=== PATIENT | male | born 1965 ===

== ENCOUNTER 2017-03-25 21:08 | Emergency (ER) | payer OTHER ==
[~2017-03-25] VITALS: Ht 175.3 cm; Wt 75.0 kg
--- NOTE | 2017-03-25 21:09 | ED.REPORT ---
HPI-General Illness Date of Service Mar 25, 2017 ED Provider: Dr. Burnett Patient presents with multiple vague symptoms stating that he has not eaten in several days, reports drinking beer earlier in the day, reports that his car did not start and that he is homeless and decided to come to the emergency room. Nursing Notes Stated Complaint: COUGH/SOB Nursing Notes Reviewed: Yes Allergies: Coded Allergies: latex (Verified Allergy, Unknown, 03/25/17) naproxen (Verified Allergy, Unknown, 03/25/17) General Time Seen by MD: 21:09 Chief Complaint Other Physical Exam Vital Signs Vital Signs Date Time Temp Pulse Resp B/P Pulse Ox O2 Delivery O2 Flow Rate FiO2 03/25/17 21:27 36.8 95 14 155/105 96 Room Air Interpretation & Diagnostics Lab Results Interpretation Result Diagram: 03/25/17211903/25/172119 Test 03/25/17 21:20 03/25/17 21:35 White Blood Count 4.9th/mm3 (3.8-10.1) Red Blood Count 4.11mil/mm3 (4.40-5.80) Hemoglobin 13.9g/dL (13.8-17.2) Hematocrit 40.2% (41.0-50.0) Mean Corpuscular Volume 97.8fL (81-100) Mean Corpuscular Hemoglobin 33.8pg (27.0-35.0) Mean Corpuscular Hemoglobin Concent 34.6% (32.0-37.0) Red Cell Distribution Width 14.4% (12.3-15.4) Platelet Count 86bil/L (150-400) Neutrophils (%) (Auto) 41.6% (40-74) Lymphocytes (%) (Auto) 41.2% (14-46) Monocytes (%) (Auto) 13.9% (4-12) Eosinophils (%) (Auto) 2.7% (0-5) Basophils (%) (Auto) 0.4% (0-3) Sodium Level 137mEq/L (134-144) Potassium Level 4.3mEq/L (3.5-5.2) Chloride Level 97mEq/L (97-108) Carbon Dioxide Level 21mmol/L (18-29) Blood Urea Nitrogen 7mg/dL (6-24) Creatinine 0.63mg/dL (0.76-1.27) Estimat Glomerular Filtration Rate 143mL/min (>59) Glucose Level 99mg/dL (60-99) Calcium Level 9.4mg/dL (8.5-10.1) Magnesium Level 2.0mg/dL (1.6-2.6) Total Bilirubin 0.5mg/dL (0.0-1.2) Aspartate Amino Transf (AST/SGOT) 397U/L (0-50) Alanine Aminotransferase (ALT/SGPT) 252U/L (0-44) Alkaline Phosphatase 98U/L (25-150) Troponin T 0.010ug/L (0.0-0.011) Pro-B-Type Natriuretic Peptide 13.18pg/mL (0-121) Total Protein 8.1g/dL (6.4-8.4) Albumin 4.2g/dL (3.4-5.0) Urine Color Yellow (YELLOW) Urine Appearance Cloudy (CLEAR,HAZY) Urine pH 7.0 (5.0-8.0) Urine Specific [place] 1.015 (1.003-1.035) Urine Protein 100mg/dL (NEG,TRACE) Urine Glucose (UA) Negativemg/dL (NEGATIVE) Urine Ketones Negativemg/dL (NEGATIVE) Urine Occult Blood Large (NEGATIVE) Urine Nitrite Negative (NEGATIVE) Urine Bilirubin Negative (NEGATIVE) Urine Urobilinogen Normalmg/dL (NORMAL) Urine Leukocyte Esterase Moderate (NEGATIVE) Urine RBC 3-10/hpf (0-2) Urine WBC >50/hpf (0-5) Urine Epithelial Cells Many/hpf (NONE-MOD) Urine Crystals None seen (NONE SEEN) Urine Bacteria Many/hpf (NONE-FEW) Urine Hyaline Casts None/lpf (NONE) Urine Granular Casts None seen (NONE SEEN) Urine Waxy Casts None seen (NONE SEEN) Urine Red Blood Cell Casts None seen (NONE SEEN) Urine White Blood Cell Casts None seen (NONE SEEN) Urine Mucus None seen (None Seen) Urine Trichomonas None seen (NONE SEEN) Urine Yeast None (NONE SEEN) Urinalysis Comment None Urine Culture Reflexed Indicated Re-Eval/Medical Decision Med Decision/Clinical Course I am called to the bedside as the patient was found in his room to be consuming cans of beer. When I enter the room the patient is standing up acting aggressively towards nursing staff and is torn out his IV. He states that he is angry that we are not allowing him to drink beer in his hospital room and that he intends to leave. I have not yet evaluated the patient or conduct the physical examination however he is speaking fluently in full sentences. He is ambulating in a straight line. He quickly reviewed his laboratory studies which revealed a blood alcohol level of 0.14, unremarkable CBC, CMP with elevated transaminases and a negative troponin. Urinalysis was concerning for possible urinary tract infection. His chest x-ray did not demonstrate any focal pneumonia. Given the patient's aggressive behavior towards nursing staff and refusal to stay in the emergency department I had to quickly make an assessment of whether this patient had decisional capacity. In this chronic alcoholic he has blood alcohol level is relatively low and he clearly demonstrates no clinical evidence of intoxication. He is being quite aggressive in stating that he intends to leave the emergency room immediately. I do not feel that physically restraining this patient would be safe for the patient or hospital staff. In my assessment at this time he demonstrates decisional capacity. I attempted to convince the patient to stay in the emergency department so that we can treat his urinary tract infection and further assess and however he refused. The patient eloped from the emergency department AGAINST MEDICAL ADVICE. He was advised to return right away should he change his mind and wish to seek care. Counseled Regarding: Diagnosis, Lab results, Need for follow-up, When/why to return to ED Discharge & Departure Primary Impression: Aggressive behavior Additional Impressions: Alcoholism Urinary tract infection Urinary tract infection type: site unspecified Hematuria presence: with hematuria Qualified Code: N39.0 - Urinary tract infection, site not specified Homelessness Disposition: Home Discharge Condition All VS Reviewed: Yes Condition: Stable Scribe Attestation Portions of this note were transcribed by Matias Woodall. I, Dr. Burnett, personally performed the history, physical exam and medical decision-making; I reviewed and confirmed the accuracy of the information in the transcribed note. Signed by Rachael Berrios, 03/25/17 - 2149 Vamshi Burnett MD Mar 25, 2017 21:09 MATIAS WOODALL Mar 25, 2017 21:47
[2017-03-25 21:27] VITALS: BP 155/105; PULSE 95; RESP 14; O2SAT 96
[2017-03-25 21:27] LABS: BASOPHILS % (AUTO) 0.4 % (0-3); EOSINOPHILS % (AUTO) 2.7 % (0-5); MONOCYTES % (AUTO) 13.9 % (4-12); Mean Corpuscular Hemoglobin 33.8 pg (27.0-35.0); Mean Corpuscular Volume 97.8 fL (81-100); NEUTROPHILS % (AUTO) 41.6 % (40-74); Platelet Count 86 bil/L (150-400)
[2017-03-25 22:01] LABS: TROPONIN T 0.01 ug/L (0.0-0.011)
--- NOTE | 2017-03-25 22:08 | DRSVH ---
PROCEDURE: X-RAY CHEST, TWO VIEWS ([id number]) INDICATIONS: SOB TECHNIQUE: 2 views of the chest were acquired. COMPARISON: None. FINDINGS: Surgical changes and devices: monitor worker leads are seen over the chest. Lungs and pleura: No pleural effusions or pneumothorax. Lungs are clear. Small density in the left mid to lower lung field in the fourth anterior intercostal space is thought to be a nipple shadow. Mediastinum: Mediastinal contours are normal. Heart size is normal. Bones and chest wall: No suspicious bony abnormalities. Soft tissues appear unremarkable. IMPRESSION: No acute or active disease is seen in the two-view chest. Dictated by: Frandy Marvin M.D. on 03/25/2017 at 22:05 Approved by: Frandy Marvin M.D. on 03/25/2017 at 22:06
[2017-03-25 22:22] LABS: APPEARANCE,URINE CLOUDY (CLEAR,HAZY); COLOR,URINE YELLOW (YELLOW); OCCULT BLOOD,URINE LARGE (NEGATIVE); UROBILINOGEN,URINE NORMAL (NORMAL)
[2017-03-26] MEDS ORDERED: ALBU8.5H2 INHALATION (23:05)
== END 2017-03-25 21:56 | disposition left against medical advice (07) ==
LOC: SED 21:08
DX: F91.9 Conduct disorder, unspecified (principal); F10.20 Alcohol dependence, uncomplicated; N39.0 Urinary tract infection, site not specified; Z59.0 Homelessness

== ENCOUNTER 2017-03-26 10:25 | Emergency (ER) | payer OTHER ==
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
[2017-03-26 10:26] VITALS: BP 155/96; PULSE 89; RESP 20; O2SAT 98
[2017-03-26] MEDS ORDERED: OLANZapine Zydis ODT 5 mg Tablet PO ONE (11:00)
[2017-03-26] MEDS ORDERED: Haloperidol 5 mg/mL Inj IM ONE (11:00)
--- NOTE | 2017-03-26 13:28 | DRSVH ---
PROCEDURE: CT CERVICAL SPINE WITHOUT CONTRAST ([id number]) INDICATIONS: fall, intoxicated TECHNIQUE: Noncontrast 3 mm thick sections acquired from the skull base to the T4 level. Sagittal and coronal r eformats were then constructed. For radiation dose reduction, the following was used: automated exp osure control, adjustment of mA and/or kV according to patient size. COMPARISON: None. FINDINGS: Image quality: Excellent. Bones: No fractures or dislocations. Multiple ununited anterior osteophytes of the mid cervical spi ne however corticated margin, in keeping with chronic age. Visualized superior ribs are intact. Ther e is multilevel mild cervical disc degeneration. Subcentimeter sclerotic focus in the C3 vertebral abel dy presumably bone island although technically nonspecific. Soft tissues: Prevertebral soft tissues are normal in thickness. No paravertebral hematomas. No ap ical pneumothoraces. IMPRESSION: No acute fracture or malalignment. Degenerative changes as above. Dictated by: Suraj Tam M.D. on 03/26/2017 at 13:23 Approved by: Suraj Tam M.D. on 03/26/2017 at 13:26
--- NOTE | 2017-03-26 13:34 | DRSVH ---
PROCEDURE: CT BRAIN WITHOUT CONTRAST ([id number]) INDICATIONS: fall, intoxicated TECHNIQUE: Noncontrast 4.5 mm thick angled axial sections acquired from the foramen magnum to the vertex, with c oronal reformats. COMPARISON: None. FINDINGS: Image quality: Excellent. CSF spaces: Basal cisterns are patent. No extra-axial fluid collections. The ventricles are symmet delmis in size and shape. Brain: No intracranial bleeds or masses. There is cerebral volume loss for age, with resultant vent ricular and sulcal prominence. There are periventricular and deep white matter chronic small vessel ischemic changes. There is intracranial internal carotid artery atherosclerosis. Skull and face: No calvarial fracture. Linear lucency seen in the anterior wall of the right maxillar y antrum could be vessel foramen however cannot exclude fracture and clinical correlation. Sinuses: Hypoplastic right maxillary sinus with near-complete opacification IMPRESSION: No acute intracranial process. Linear lucent focus seen in anterior wall of the right maxillary sinus. This is most likely vessel fo ramen, especially with symmetric appearance seen on the contralateral side on the coronal reformation s, and sclerotic margin. If there is high clinical suspicion for fracture, a maxillofacial CT could b e performed for further assessment. Dictated by: Suraj Tam M.D. on 03/26/2017 at 13:26 Approved by: Suraj Tam M.D. on 03/26/2017 at 13:32
[2017-03-26 16:19] VITALS: BP 107/60; PULSE 97; O2SAT 93
[2017-03-26] MEDS ORDERED: ALBU8.5H2 INHALATION (23:05)
[2017-03-26 23:08] VITALS: BP 101/57; PULSE 101; RESP 16; O2SAT 95
[2017-03-26 23:15] VITALS: BP 111/55; PULSE 93; RESP 16; O2SAT 95
== END 2017-03-26 23:16 | disposition home or self-care (01) ==
LOC: SED 10:25
DX: F91.8 Other conduct disorders (principal); J18.9 Pneumonia, unspecified organism; H54.12 Blindness, left eye, low vision right eye; F17.200 Nicotine dependence, unspecified, uncomplicated; Z59.0 Homelessness; Z88.8 Allergy status to other drugs, medicaments and biological substances; Z91.040 Latex allergy status
CPT/HCPCS: 70450; 72125; 81002; 82075; 96372; 99285; J1200; J1630; J2060